=== PATIENT | male | born 1985 | race African-American/Black ===

== ENCOUNTER 2023-01-19 11:10 | Emergency (ER) | payer SELFPAY ==
[~2023-01-19] VITALS: Ht 180.3 cm; Wt 106.6 kg
--- NOTE | 2023-01-19 11:12 | NUR ---
Called for triage, no answer
--- NOTE | 2023-01-19 11:33 | NUR ---
Pt seen by MD for bedside eval. Safety measures in place. Will continue to monitor.
[2023-01-19] MEDS ORDERED: OXYCODONE/APAP 5-325 MG TABLET ONE (11:36)
[2023-01-19] MEDS ORDERED: OXYCODONE/APAP 5-325 MG TABLET PO ONE (11:45)
[2023-01-19] MEDS ORDERED: OXYC-133 PO (13:20)
[2023-01-19 13:51] VITALS: BP 130/84; TEMP 98.7; O2SAT 99
--- NOTE | 2023-01-19 13:51 | NUR ---
Patient discharged to home in stable condition. Written and verbal after care instructions given. Patient verbalizes understanding of instructions. Pt left with crutches. Stressed follow up or return to ER for worsening s/s.
== END 2023-01-19 13:51 | disposition home or self-care (01) ==
LOC: ER 11:10
DX: S86.911A Strain of unspecified muscle(s) and tendon(s) at lower leg level, right leg, initial encounter (principal); Z79.899 Other long term (current) drug therapy; X50.1XXA Overexertion from prolonged static or awkward postures, initial encounter; Y93.89 Activity, other specified; Y92.89 Other specified places as the place of occurrence of the external cause; Y99.8 Other external cause status
CPT/HCPCS: 73590; A4663